=== PATIENT | male | born 1945 | race Caucasian/White ===

== ENCOUNTER 2020-10-09 09:07 | Inpatient (IN) | payer OTHER ==
[~2020-10-09] VITALS: Ht 177.8 cm; Wt 95.7 kg
[2020-10-09 09:17] VITALS: BP 172/82
[2020-10-09] MEDS ORDERED: LISINOPRIL10 MG PO (09:27)
[2020-10-09] MEDS ORDERED: NORVASC (09:27)
[2020-10-09] MEDS ORDERED: DESYREL150 MG PO (09:28)
[2020-10-09] MEDS ORDERED: ZOLOFT100 MG PO (09:28)
[2020-10-09 10:34] LABS: ABSOLUTE EOSINOPHILS 0.1 thou/uL (0.0-0.7); ABSOLUTE LYMPHOCYTES 14.4 thou/uL (0.8-5.3); ABSOLUTE MONOCYTES 0.5 thou/uL (0.0-1.2); ABSOLUTE NEUTROPHILS 4.5 thou/uL (1.6-8.1); BASOPHILS 0.1 %; EOSINOPHILS 0.5 %; LYMPHOCYTES 73.6 %; MCV 88.1 fL (80.0-100.0); MONOCYTES 2.6 %; MPV 8.7 fl. (7.2-11.1); NUCLEATED RBCS 1 /100WBC; PLATELET COUNT* 209 thou/uL (150-400); POLYS 23.2 %; RDW-CV 14.9 % (10.5-14.5); WBC 19.5 thou/uL (4.0-11.0)
[2020-10-09 10:41] LABS: CALCIUM 8.7 mg/dL (8.5-10.1); CREATININE 1.1 mg/dL (0.6-1.3); POTASSIUM 3.8 mmol/L (3.5-5.1)
[2020-10-09 10:57] LABS: ALBUMIN 3.8 g/dL (3.4-5.0); TOTAL BILIRUBIN 0.6 mg/dL (<0.1-1.0); TOTAL PROTEIN 7.5 g/dL (6.4-8.2)
[2020-10-09 15:18] VITALS: BP 176/89
--- NOTE | 2020-10-09 16:05 | EKG ---
[place] [address] ELECTROCARDIOGRAM REPORT Name: MAUDE GUERRERO Room: [address] M.R.#: [id number] Admission: 10/09/20 Attend Phys: Mercedes Martin, Discharge: Date of : 41 Date of Service: 10/09/20 0940 Report #: [id number] THIS REPORT FOR: //name// [facility] ED Test Date: 2020-10-09 Test Time: 09:40:01 Pat Name: MAUDE GUERRERO Department: Room: [facility] Gender: M Wrapping Clerk: FRANCIS : 1945 Requested By: Nathan Loving Order Number: [id number] MD: Dave Harris Measurements Intervals [place] Rate: 82 P: 46 OK: 139 QRS: 61 QRSD: 89 T: 138 QT: 378 QTc: 442 Interpretive Statements Sinus rhythm Abnormal R-wave progression, early transition Possible inferior infarct, old Tyrese-lateral leads are also involved No previous ECG available for comparison Electronically Signed On 10-09-2020 16:05:12 CDT by Dave Harris [email or web address] <ELECTRONICALLY SIGNED> By: Dave Harris MD, [facility] 10/09/20 1605 0940 0940 Dave Harris MD, [facility] /EPI
[2020-10-09 16:53] VITALS: BP 166/89
[2020-10-09 17:00] VITALS: BP 156/81
--- NOTE | 2020-10-09 17:29 | 2DMMODE ---
[place] [address] 2 D/M-MODE ECHOCARDIOGRAM Name: YOLANDAMAUDE Leon Room: [address] MJossieRJossie#: [id number] Admission: 10/09/20 Attend Phys: Mercedes Martin, Discharge: Date of : 41 Date of Service: 10/09/20 1729 Report #: [id number] THIS REPORT FOR: cc: [facility] - Clinic physician unknown [facility] - Clinic physician unknown Jose R Ospina MD [facility] ~ APPROVED REPORT Study performed: 10/09/2020 16:14:53 EXAM: Comprehensive 2D, Doppler, and color-flow Echocardiogram Patient Location: In-Patient Room #: er Status: routine BSA: 2.18 HR: 88 bpm BP: 170/88 mmHg Rhythm: NSR Other Information Study Quality: Good Indications Chest Pain 2D Dimensions LVOT Diam: 19.65 (18-24mm) Aortic Root: 35.50 mm Volumes Left Atrial Volume (Systole) LA ESV Index: 25.50 mL/m2 Aortic Valve AoV Peak Phillip.: 1.33 m/s AO Peak Gr.: 7.03 mmHg LVOT Max P.13 mmHg AO Mean Gr.: 3.82 mmHg LVOT Mean P.57 mmHg LVOT Max V: 1.34 m/s AO V2 VTI: 24.25 cm LVOT Mean V: 0.88 m/s LINNETTE (VTI): 3.07 cm2 LVOT V1 VTI: 24.52 cm Mitral Valve E/A Ratio: 0.73 MV Decel. Time: 296.46 [place] [address] 2 D/M-MODE ECHOCARDIOGRAM Name: YOLANDAMADUE Edward Room: [address]#: [id number] Admission: 10/09/20 Attend Phys: Mercedes Martin, Discharge: Date of : 41 Date of Service: 10/09/20 1729 Report #: [id number] MV E Max Phillip.: 0.89 m/s MV PHT: 85.97 ms MVA (PHT): 2.56 cm2 TDI E/Lateral E': 9.89 E/Medial E': 12.71 Medial E' Phillip.: 0.07 m/s Lateral E' Phillip.: 0.09 m/s Left Ventricle The left ventricle is normal size. There is normal LV segmental wall motion. There is normal left ventricular wall thickness. Left ventricular systolic function is normal. LVEF is 55-60%. Grade I - abnormal relaxation pattern. Right Ventricle The right ventricle is normal size. The right ventricular systolic function is normal. Atria The left atrium size is normal. The right atrium size is normal. Aortic Valve Mild aortic valve sclerosis. No aortic regurgitation is present. There is no aortic valvular stenosis. Mitral Valve The mitral valve is normal in structure. There is no mitral valve regurgitation noted. No evidence of mitral valve stenosis. Tricuspid Valve The tricuspid valve is normal in structure. Unable to assess PA pressure. Trace tricuspid regurgitation. Pulmonic Valve The pulmonary valve is normal in structure. There is no pulmonic valvular regurgitation. Great Vessels The aortic root is normal in size. IVC is normal in size and collapses >50% with inspiration. Pericardium There is no peric[place] [address] 2 D/M-MODE ECHOCARDIOGRAM Name: MAUDE GUERRERO Room: [address] MJossieR.#: [id number] Admission: 10/09/20 Attend Phys: Mercedes Martin, Discharge: Date of : 41 Date of Service: 10/09/201728 Report #: [id number] <Conclusion> The left ventricle is normal size. There is normal left ventricular wall thickness. Left ventricular systolic function is normal. LVEF is 55-60%. Grade I - abnormal relaxation pattern. Mild aortic valve sclerosis. There is no aortic valvular stenosis. Trace tricuspid regurgitation. IVC is normal in size and collapses >50% with inspiration. <ELECTRONICALLY SIGNED> By: Jose R Ospina MD, [facility] 10/09/201728 28 28 Jose R Ospina MD, FACC /INF
[2020-10-09] MEDS ORDERED: NORVASC10 MG PO (19:27)
[2020-10-09 20:00] VITALS: BP 144/66
[2020-10-10 01:13] VITALS: BP 117/65
[2020-10-10 04:27] VITALS: BP 117/63
[2020-10-10 04:35] LABS: HEMATOCRIT 42.1 % (42.0-52.0); HEMOGLOBIN 14.1 gm/dL (14.0-18.0); MCH 29.5 pg (26.0-34.0); MCHC 33.4 g/dL (28.0-37.0); MCV 88.3 fL (80.0-100.0); MPV 8.6 fl. (7.2-11.1); RBC 4.77 mil/uL (4.50-6.00); RDW-CV 14.6 % (10.5-14.5); WBC 14.8 thou/uL (4.0-11.0)
[2020-10-10 04:40] LABS: ALKALINE PHOSPHATASE 74 U/L (46-116); ANION GAP 8 mmol/L (7-16); CHLORIDE 103 mmol/L (98-107); CHOLESTEROL 206 mg/dL (<200); GLUCOSE 87 mg/dL (70-99); HDL CHOLESTEROL 40 mg/dL (>40); LDL CHOLESTEROL 145 mg/dL (<100); SODIUM 139 mmol/L (136-145); TC:HDL 5.2 Ratio (Not establshd); TOTAL BILIRUBIN 0.6 mg/dL (<0.1-1.0); TOTAL PROTEIN 6.8 g/dL (6.4-8.2); TRIGLYCERIDE 108 mg/dL (<150); TROPONIN-I LEVEL <0.06 ng/mL (<0.06); VLDL 22 mg/dL (<40)
[2020-10-10 04:41] LABS: ALBUMIN 3.5 g/dL (3.4-5.0); BUN 16 mg/dL (7-18); CALCIUM 8.7 mg/dL (8.5-10.1); CO2 28 mmol/L (21-32); CREATININE 1.2 mg/dL (0.6-1.3); POTASSIUM 3.7 mmol/L (3.5-5.1); SGOT 28 U/L (15-37); SGPT 32 U/L (30-65)
[2020-10-10 05:29] LABS: SERUM ASSESSMENT Clear
[2020-10-10 08:36] VITALS: BP 116/60
[2020-10-10 10:27] LABS: APTT 27.7 Seconds (25.0-31.3); INR 1.1; PROTIME 11.4 Seconds (9.20-11.50)
[2020-10-10 11:58] VITALS: BP 145/70
[2020-10-10 16:54] VITALS: BP 153/72
[2020-10-10 19:49] VITALS: BP 155/72
[2020-10-11] VITALS (11 sets, daily range): BP systolic 127–163; BP diastolic 60–79
[2020-10-11] MEDS ORDERED: ASA81BEC PO (08:58)
[2020-10-11] MEDS ORDERED: CARVEDILOL12.5 MG PO (08:58)
[2020-10-11] MEDS ORDERED: LIPITOR40 MG PO (08:58)
[2020-10-11] MEDS ORDERED: NITROGLYCERIN0.4 MG SUBLING (08:58)
--- NOTE | 2020-10-11 11:01 | CON ---
[address] [address] CONSULTATION Name: YOLANDAMAUDE Edward Room: [address] IN M.R.#: [id number] Admission: 10/09/20 Attend Phys: Mercedes Martin MD Discharge: Date of : 41 Report #: [id number] THIS REPORT FOR: cc: [facility] - Clinic physician unknown [facility] - Clinic physician unknown Jose R Ospina MD FACC ~ cc: Dr. Tavares DATE OF CONSULTATION: 10/09/2020 CARDIOLOGY CONSULTATION INDICATION: Chest pain. HISTORY OF PRESENT ILLNESS: The patient is a very pleasant 75-year-old gentleman who reports a remote history of cardiac catheterization at the [facility] in the [facility]. At that time, he was told he had some coronary artery narrowing, but was not in need of intervention. The patient has had no subsequent cardiac evaluation since. He reports to the hospital with complaints of progressive fatigue over the last several days associated with some nausea, clammy feeling and shortness of breath. With this, he has had intermittent episodes of discomfort in the right upper chest radiating down the right arm and into the right neck and jaw area. The pain lasts approximately 5 minutes at a time. The patient received nitroglycerin with relief of this discomfort in the Emergency Room. He reports this has been recurring. Typically, the pain is not with exertion, but is associated with a clammy feeling. He is without other cardiac complaint. He is not having orthopnea or paroxysmal nocturnal dyspnea. He does report a cough productive of clear sputum. PAST MEDICAL HISTORY: Significant for hypertension, coronary artery disease, current tobacco use, remote back surgery, remote right wrist surgery, remote left knee surgery, remote right elbow surgery, CVA with left-sided hemiparesis, status post rehabilitation 2 years ago. HOME MEDICATIONS: Lisinopril 10 mg p.o. daily, Zoloft 100 mg p.o. daily, trazodone 150 mg at bedtime. ALLERGIES: None documented. FAMILY HISTORY: Positive for coronary artery disease in both his mother, his father and his brother. SOCIAL HISTORY: Tobacco use. Smokes a pack of cigarettes daily. [place] [address] CONSULTATION Name: YOLANDAMAUDE Edward Room: [address] IN [facility]#: [id number] Admission: 10/09/20 Attend Phys: Mercedes Martin MD Discharge: Date of : 41 Report #: [id number] REVIEW OF SYSTEMS: Otherwise, positive for reading glasses, joint pain, occasional lightheadedness and dizziness, polyuria and weakness of his left hand from previous stroke. Otherwise, 14-point review of systems was unremarkable. PHYSICAL EXAMINATION: VITAL SIGNS: Blood pressure 166/89, pulse is 84 and regular. GENERAL: This is a pleasant gentleman in no distress. Mood and affect appropriate. HEENT: Extraocular muscles intact. Mucous membranes are moist. NECK: Shows no jugular venous distention. I do not appreciate obvious bruit. CHEST: Reveals diminished breath sounds without wheezes or rales. CARDIAC: Reveals a regular rhythm with normal S1 and S2. I do not appreciate gallop or murmur. ABDOMEN: Reveals normal bowel sounds. Abdomen is soft and nontender. EXTREMITIES: Shows no edema. SKIN: Dry. DIAGNOSTIC DATA: A 12-lead EKG shows sinus rhythm with inferior Q-waves noted. I do not appreciate acute ST or T-wave abnormalities. Chest x-ray shows some atelectasis in the left base. There is no obvious edema. LABORATORY DATA: Reviewed. White blood cell count 19.5, hemoglobin 15.0, platelet count 209,000. Sodium 136, potassium 3.8, chloride 102, bicarbonate 26, BUN 14, creatinine 1.1, serum glucose 112. LFTs within normal limits. Initial troponin 0.06. NT-proBNP 210. IMPRESSION AND RECOMMENDATIONS: 1. Chest pain with symptoms to suggest progressive angina. We will proceed with coronary angiography and possible intervention as deemed necessary. Continue aspirin daily tonight. The patient will be put on subcutaneous Lovenox for deep venous thrombosis prophylaxis. 2. Possible dyslipidemia. Check fasting lipid profile. 3. Hypertension. Blood pressure moderately elevated. We will adjust medications for improved blood pressure. 4. Chronic tobacco use. Smoking cessation advised. 5. History of cerebrovascular accident. Continue antiplatelet therapy. 6. Family history of coronary artery disease as outlined above. <ELECTRONICALLY SIGNED> By: Jose R Ospina MD, FACC 10/11/20 1101 1650 [id number] Ospina MD, FACC /nt
--- NOTE | 2020-10-11 16:16 | CARD ---
[address] [address] CARDIAC CATH REPORT Name: MAUDE GUERRERO Room: [address] IN ..#: [id number] Admission: 10/09/20 Attend Phys: Mercedes Martin MD Discharge: Date of : 41 Report #: [id number] THIS REPORT FOR: cc: [facility] - Clinic physician unknown [facility] - Clinic physician unknown Jose R Ospina MD [facility] ~ APPROVED REPORT Study performed: 10/11/2020 12:03:20 Patient Details Patient Status: In-Patient Room #: The patient is a 75 year-old male Event Personnel Jose R Ospina Color Corrector, Cata De La Fuente RN Sales Support Administrator, Mervat Navarro RTR Scrub, Nory Dc RTR Monitor Procedures Performed Art Access - R femoral artery, Left Heart Cath w/or w/o Coronaries LHC , Hemostasis w/ Mynx Admission/Lab Medications/Medications given during procedure Oxygen Nasal cannula 2 l per min, Midazolam (Versed) IV 1 mg, Fentanyl IV 25 mcg, Lidocaine Subcut 15 ml Procedure Narrative The patient was brought electively to the Cardiac Catheterization Laboratory and was prepped and draped in a sterile manner. The right femoral was infiltrated with 2% Lidocaine subcutaneous anesthesia. IV conscious sedation was used throughout procedure with appropriate monitoring and was performed in the presence of a registered nurse who was an independent trained observer other than the physician performing the procedure. A 6F Ultimum sheath was inserted into the right femoral artery. Coronary angiography was performed using coronary diagnostic catheters. The right coronary system was accessed and visualized with a 6F AL1 catheter. The left coronary system was accessed and visualized with a 6F JL4 catheter. The left ventricle was accessed and visualized with a 6F JR4 catheter. Left ventricular/Aortic Valve gradient assessed via catheter pullback. Pre-demployment femoral angiogram was performed . Closure device was deployed with a 6 Fr Mynx. The patient tolerated the procedure well and there were no complications associated with the procedure. [place] [address] CARDIAC CATH REPORT Name: MAUDE GUERRERO Room: [address] IN [facility]#: [id number] Admission: 10/09/20 Attend Phys: Mercedes Martin MD Discharge: Date of : 41 Report #: [id number] Intraoperative Conscious Sedation Sedation start time: 12:23 Case end Time: 12:47 Fentanyl 25 mcg Versed 1 mg Fluoro Time: 7.3 minutes Dose: DAP 68087 cGycm2 1195 mGy Contrast Type and Amount: Visipaque 60 ml Diagnostic Cath Left Main The left main coronary artery is minimally plaqued and mildly calcified with approximately 10% narrowing. LAD The LAD is free of significant disease. 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 Diagonal 1 A first diagonal branch is large and branched. The first diagonal is free of significant disease. Circumflex The circumflex coronary artery has minimal 10% plaquing proximally. OM1 The first obtuse marginal branch appears normal. OM2 A second obtuse marginal branch appears normal. Right Coronary The right coronary artery is a large and dominant vessel. 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 There is approximate 10% narrowing proximally. The remainder of the vessel is normal. R PDA A large right PDA is normal. RPLV A large right posterior lateral LV branch is normal. Left Ventriculography Left Ventriculography was not performed. The left ventricle is normal in size with normal contractility. The left ventricular ejection fraction is estimated to be 65-70%. Left ventricular wall motion abnormalities are not present. Hemodynamics The aortic pressure is 142/65 mmHg with a mean of 96 mmHg. The left ventricular pressure is 142/0 mmHg with a mean of mmHg. The left ventricular end diastolic pressure is 7 mmHg. Conclusion 1. Minimal coronary artery plaquing as outlined above. 2. Normal left ventricular systolic function. 3. Normal left ventricular end-diastolic pressure. 4. Anomalous takeoff of the [place] [address] CARDIAC CATH REPORT Name: MAUDE GUERRERO Room: [address] [place] .R.#: [id number] Admission: 10/09/20 Attend Phys: Mercedes Martin MD Discharge: Date of : 41 Report #: [id number] Recommendations 1. Continue medical management and aggressive risk factor modification. <ELECTRONICALLY SIGNED> By: Jose R Ospina MD, FACC 10/11/20 161 15 161Michaequincy Ospina MD, FACC /INF
== END 2020-10-11 18:18 | disposition home or self-care (01) | DRG 287 ==
LOC: M.ERS 09:07 → M.2W 11:18 → M.TBA-ER 11:18 → M.2W 17:06
PROVIDERS: Emergency Medicine Emergency Medical Services; Internal Medicine Cardiovascular Disease; ADMIT Internal Medicine; ATTEND Internal Medicine
PROC: B211YZZ Fluoroscopy of Multiple Coronary Arteries using Other Contrast (ICD-10-PCS; principal; 2020-10-11)
PROC: 4A023N7 Measurement of Cardiac Sampling and Pressure, Left Heart, Percutaneous Approach (ICD-10-PCS; principal; 2020-10-11)
DX: I25.119 Atherosclerotic heart disease of native coronary artery with unspecified angina pectoris (principal); I69.354 Hemiplegia and hemiparesis following cerebral infarction affecting left non-dominant side; I10 Essential (primary) hypertension; F17.210 Nicotine dependence, cigarettes, uncomplicated; E78.5 Hyperlipidemia, unspecified; Z20.822 Contact with and (suspected) exposure to COVID-19; Z79.899 Other long term (current) drug therapy